=== PATIENT | female | born 1955 | race Caucasian/White ===

== ENCOUNTER → 2019-11-07 10:15 | Outpatient (CLI) | payer OTHER, SELFPAY ==
--- NOTE | ~2019-11-07 | MM_ITS ---
EXAMINATION: MM screening [facility] BI w nena HISTORY: Screening mammogram TECHNIQUE: Craniocaudal and mediolateral oblique 3-D tomosynthesis images were obtained and synthetic 2-D images were generated. CAD analysis was submitted and interpreted. COMPARISON: 08/02/2018, 06/18/2015, 12/17/2013 BREAST PARENCHYMAL COMPOSITION: There are scattered areas of fibroglandular density. FINDINGS: There is no evidence of suspicious mass, calcification, or architectural distortion to sugg est malignancy in either breast. There has been no suspicious interval change. IMPRESSION: 1. No mammographic evidence of malignancy. 2. Recommend routine screening mammography in one year. BI-RADS Category 1: Negative Reviewed, dictated and finalized at location A.
== END ==
PROVIDERS: Visit Provider Internal Medicine
DX: Z12.31 Encounter for screening mammogram for malignant neoplasm of breast (principal)
CPT/HCPCS: 77063; 77067

== ENCOUNTER → 2020-12-22 13:28 | Outpatient (CLI) | payer OTHER, SELFPAY ==
--- NOTE | ~2020-12-22 | MM_ITS ---
EXAMINATION: MM screening [facility] BI w nena HISTORY: Screening mammogram TECHNIQUE: Craniocaudal and mediolateral oblique 3-D tomosynthesis images were obtained and synthetic 2-D images were generated. CAD analysis was submitted and interpreted. COMPARISON: 11/07/2019, 08/02/2018, 06/18/2015 bilateral digital screening mammogram examinations BREAST PARENCHYMAL COMPOSITION: The breasts are heterogeneously dense, which may obscure small masses . FINDINGS: Occasional bilateral benign calcifications. There is no evidence of suspicious mass, calcif ication, or architectural distortion to suggest malignancy in either breast. There has been no suspic ious interval change. IMPRESSION: 1. No mammographic evidence of malignancy. 2. Recommend routine screening mammography in one year. BI-RADS Category 1: Negative Reviewed, dictated and finalized at location A.
== END ==
PROVIDERS: PCP Internal Medicine; Visit Provider Internal Medicine
DX: Z12.31 Encounter for screening mammogram for malignant neoplasm of breast (principal)
CPT/HCPCS: 77063; 77067

== ENCOUNTER → 2021-04-26 11:50 | Outpatient (CLI) | payer OTHER, SELFPAY ==
--- NOTE | ~2021-04-26 | US_ITS ---
EXAMINATION: US thyroid EXAM DATE: 04/26/2021 12:15 INDICATION: Multinodular goiter. TECHNIQUE: Multiple grayscale and Doppler images of the thyroid were obtained (by a technologist who performed the scan) and subsequently reviewed. Individual nodules and recommendations may be reporte d in accordance with TI-RADS system as designated by the 2017 ACR White Paper TI-RADS committee. The re is no prior study for comparison. FINDINGS: The right thyroid lobe measures 6.7 x 2.9 x 3.1 cm, the left measuring 5.4 x 2.4 x 1.8 cm, moderately enlarged. Diffusely moderately heterogeneous thyroid echogenicity with expected amount of vascularit y. Probable right thyroid lobe nodule measuring 3.1 x 2.3 x 2.6 cm, predominantly solid (2 points), hypo echoic (2 points), wider than tall, lobulated margin (2 points), without echogenic foci, category TR4 for this nodule. Small right thyroid lobe deep isoechoic category TR 3 nodule measuring 1.9 x 1.5 x 1.7 cm. IMPRESSION: 1. Multinodular goiter. 2. Largest right thyroid lobe nodule could be considered for ultrasound-guided biopsy. 3. One-year follow-up could be obtained for the smaller right thyroid lobe nodule. Reviewed, dictated and finalized at location B. IMPRESSION: 1. Multinodular goiter. 2. Largest right thyroid lobe nodule could be considered for ultrasound-guided biopsy. 3. One-year follow-up could be obtained for the smaller right thyroid lobe sarah simental
== END ==
PROVIDERS: PCP Internal Medicine
DX: E04.2 Nontoxic multinodular goiter (principal)
CPT/HCPCS: 76536

== ENCOUNTER → 2021-06-09 10:21 | Outpatient (CLI) | payer OTHER, SELFPAY ==
--- NOTE | ~2021-06-09 | DEXA_ITS ---
Bone Density Report Name: Uma Valentin Age: 66 Sex: Female Ethnicity: White Date of : 1955 Indication: postmenopausal; screening for osteoporosis; Referring Provider: Richie Loya Study: Bone densitometry was performed. Exam Date: June 09, 2021 Accession number: [id number] Bone Density: Region BMD T-score Z-score Classification AP Spine (L1-L4) 1.017 -0.3 1.5 Normal Femoral Neck (Left) 0.779 -0.6 0.9 Normal Total Hip (Left) 0.960 0.1 1.4 Normal Femoral Neck (Right) 0.789 -0.5 1.0 Normal Total Hip (Right) 0.869 -0.6 0.6 Normal Total Hip Mean 0.915 -0.3 1.0 Normal World Health Organization criteria for BMD impression classify patients as: Normal (T-score at or above -1.0), Osteopenia (T-score between -1.0 and -2.5), or Osteoporosis (T-score at or below -2.5). 10-year Fracture Risk: FRAX not reported because: All T-scores for Spine Total, Hip Total, Femoral Neck at or above -1.0 Previous Exams: Region Exam Age BMD T-score BMD Change BMD Change Date g/cm2 vs Baseline vs Previous AP Spine(L1-L4) 06/09/2021 66 1.017 -0.3 0.002 0.002 06/18/2015 60 1.014 -0.3 Total Hip(Left) 06/09/2021 66 0.960 0.1 -0.020 -0.020 06/18/2015 60 0.980 0.3 Total Hip(Right) 06/09/2021 66 0.869 -0.6 -0.029 -0.029 06/18/2015 60 0.898 -0.4 *Denotes significance at 95% confidence level, LSC for AP Spine = 0.022 g/cm2, LSC for Total Hip = 0.027 g/cm2 Clinical Information Provided by Patient: Has used the following medications: Vitamin D Patient maximum height was 68.3 Menopause Age: 48 No regular weight bearing exercise Drinks caffeinated beverages Onset of menses at age 14 Number of children 2 Impression: The patient has normal bone mass. No significant bone loss was observed. Discussion: BONE DENSITY IS ABOVE THE MINIMUM DESIRABLE LEVEL AT ALL SKELETAL SITES TESTED. This patient?s bone mineral density is above the minimum desirable level (T-score -1.0 or better) at all sites measured. The patient should follow a healthful lifestyle (good nutrition with adequate calcium and vitamin D, and appropriate weight-bearing exercise). Follow-Up: Consider repeating this study in 5 years or sooner if there is some new clinical indication. Reported by: MAYRA on 06/09/2021 10:40:00 AM. Reviewed, dictated and finalized at location A. M
== END ==
PROVIDERS: PCP Internal Medicine
DX: Z13.820 Encounter for screening for osteoporosis (principal)
CPT/HCPCS: 77080

== ENCOUNTER → 2022-03-16 13:29 | Outpatient (CLI) | payer OTHER, SELFPAY ==
--- NOTE | ~2022-03-16 | MM_ITS ---
EXAMINATION: MM screening [facility] BI w nena HISTORY: Screening TECHNIQUE: Craniocaudal and mediolateral oblique 3-D tomosynthesis images were obtained and synthetic 2-D images were generated. CAD analysis was submitted and interpreted. COMPARISON: Comparison to multiple prior studies sequentially, with oldest reviewed study dated 05/28. BREAST PARENCHYMAL COMPOSITION: The breasts are heterogeneously dense, which may obscure small masses . FINDINGS: There is no evidence of suspicious mass, calcification, or architectural distortion to sugg est malignancy in either breast. There has been no suspicious interval change. IMPRESSION: 1. No mammographic evidence of malignancy. 2. Recommend routine screening mammography in one year. BI-RADS Category 1: Negative Reviewed, dictated and finalized at location A.
== END ==
PROVIDERS: PCP Internal Medicine; Visit Provider Internal Medicine
DX: Z12.31 Encounter for screening mammogram for malignant neoplasm of breast (principal)
CPT/HCPCS: 77063; 77067

== ENCOUNTER → 2023-03-14 10:07 | Outpatient (CLI) | payer OTHER, SELFPAY ==
--- NOTE | ~2023-03-14 | US_ITS ---
Thyroid ultrasound. Clinical History: Thyroid nodules COMPARISON: 04/26/2021 Findings: Real-time sonography of the thyroid gland was performed. The right lobe measures 6.6 x 3.0 x 2.9 cm. The left lobe measures 5.6 x 2.3 x 1.9 cm. The isthmus is 2 mm in AP diameter. Parenchyma is heterogeneous. There is a probable 1.7 x 1.3 x 1.3 cm hypoechoic nodule small hyperecho ic foci at the posterior aspect of the right midpole (TR-5 nodule). There is a suspected 1.3 cm hypoe choic solid nodule at the right upper pole. There is a 0.6 cm cystic nodule at the left midpole posteriorly. Impression: Thyroid nodules, predominantly in the right lobe, as detailed above, which are overall probably simil ar to prior exam. Stability is suggestive of benignity.. Reviewed, dictated and finalized at [facility]. Impression: Thyroid nodules, predominantly in the right lobe, as detailed above, which are overall probably similar to prior exam. Stability is suggestive of benignity..
== END ==
DX: E04.2 Nontoxic multinodular goiter (principal)
CPT/HCPCS: 76536

== ENCOUNTER → 2023-05-16 10:30 | Outpatient (CLI) | payer OTHER, SELFPAY ==
--- NOTE | ~2023-05-16 | MM_ITS ---
EXAMINATION: MM screening [facility] BI w nena HISTORY: Screening TECHNIQUE: Craniocaudal and mediolateral oblique 3-D tomosynthesis images were obtained and synthetic 2-D images were generated. CAD analysis was submitted and interpreted. COMPARISON: Comparison to multiple prior studies sequentially, with oldest reviewed study dated 02/2018. BREAST PARENCHYMAL COMPOSITION: Breast composed of scattered areas of fibroglandular density FINDINGS: There is no evidence of suspicious mass, calcification, or architectural distortion to sugg est malignancy in either breast. There has been no suspicious interval change. IMPRESSION: 1. No mammographic evidence of malignancy. 2. Recommend routine screening mammography in one year. BI-RADS Category 1: Negative Reviewed, dictated and finalized at location A.
== END ==
PROVIDERS: PCP Internal Medicine; Visit Provider Internal Medicine
DX: Z12.31 Encounter for screening mammogram for malignant neoplasm of breast (principal)
CPT/HCPCS: 77063; 77067

== ENCOUNTER 2024-07-17 10:08 | Outpatient (CLI) | payer OTHER, SELFPAY ==
--- NOTE | ~2024-07-17 | MM_ITS ---
EXAMINATION: MM screening [facility] BI w nena HISTORY: Screening mammogram TECHNIQUE: Craniocaudal and mediolateral oblique 3-D tomosynthesis images were obtained and synthetic 2-D images were generated. CAD analysis was submitted and interpreted. COMPARISON: 05/16/2023, 03/16/2022, 12/22/2020 BREAST PARENCHYMAL COMPOSITION:Not Dense. There are scattered areas of fibroglandular density. FINDINGS: No suspicious mass, calcification, or architectural distortion are identified in either nba ast to suggest malignancy. There has been no suspicious interval change. IMPRESSION: No mammographic evidence of malignancy. Recommend routine screening mammography in one year. BI-RADS Category 1: Negative Reviewed, dictated and finalized at location . ING SAW OPERATOR
== END 2024-07-17 10:09 | disposition home or self-care (01) ==
LOC: MICIMG 10:08
PROVIDERS: PCP Internal Medicine; Visit Provider Internal Medicine
DX: Z12.31 Encounter for screening mammogram for malignant neoplasm of breast (principal)
CPT/HCPCS: 77063; 77067

== ENCOUNTER 2025-07-03 07:42 | Outpatient (CLI) | payer OTHER, SELFPAY ==
--- NOTE | ~2025-07-03 | US_ITS ---
EXAMINATION: US thyroid DATE: 07/03/2025 08:41 INDICATION: Thyroid nodule TECHNIQUE: Multiple ultrasound images of the thyroid were obtained. COMPARISON: March 14, 2023 FINDINGS: Multiple bilateral thyroid nodules are again noted. All of these lesions have effectively TI-RADS 4 sonographic features. The right thyroid lobe measures 7.1 x 3.5 x 3.2 cm. The left thyroid lobe measures 6.0 x 1.7 x 2.3 cm. Complex nodule in the midpole region measuring 2.2 x 1.8 x 2.1 cm stable slightly decreased by size measurement. In the midpole region of the left lobe a 9 x 8 x 7 mm anechoic or cystic appearing focus noted. Along the lateral margin of the mid pole region a 1.2 x 1.2 x 1.2 cm complex nodule noted. Isthmus: 0.2 cm. A 1.2 7.1 x 0.6 cm nodule in the upper pole not significantly changed in size. IMPRESSION: 1. Multiple bilateral sonographically indeterminate or suspicious nodules not clearly changed from the 2022 exam. 2. Correlation with follow-up surveillance in 12 months recommended. RECOMMENDATION: Follow-up thyroid ultrasound in 12 months with recommended date adnexa exam on or about July 03, 2026. Reviewed, dictated and finalized at location A. S ASSEMBLER IMPRESSION: 1. Multiple bilateral sonographically indeterminate or suspicious nodules not c learly changed from the 2022 exam. 2. Correlation with follow-up surveillance in 12 months recommended. RECOMMENDATION: Follow-up thyroid ultrasound in 12 months with recommended date adnexa exam on or about July 03, 2026.
== END 2025-07-03 07:43 | disposition home or self-care (01) ==
PROVIDERS: PCP Internal Medicine
DX: E04.2 Nontoxic multinodular goiter (principal); Z09 Encounter for follow-up examination after completed treatment for conditions other than malignant neoplasm
CPT/HCPCS: 76536

== ENCOUNTER 2025-07-21 10:15 | Outpatient (CLI) | payer OTHER, SELFPAY ==
--- NOTE | ~2025-07-21 | MM_ITS ---
EXAMINATION: MM screening [facility] BI w nena HISTORY: Screening TECHNIQUE: Craniocaudal and mediolateral oblique 3-D tomosynthesis images were obtained and synthetic 2-D images were generated. CAD analysis was submitted and interpreted. COMPARISON: Comparison to multiple prior studies sequentially, with oldest reviewed study dated 08/02/2018. BREAST PARENCHYMAL COMPOSITION: Dense: The breasts are heterogeneously dense, which may obscure small masses FINDINGS: There is a mass in the lower inner quadrant of the right breast, anterior third. There are associated punctate calcifications. The left breast is stable without evidence for malignancy. IMPRESSION: 1. New obscured right breast mass lower inner quadrant, anterior third. 2. Additional mammographic views and possible breast ultrasound are recommended. BI-RADS Category 0: Incomplete: Needs additional imaging evaluation. Reviewed, dictated and finalized at location O. R PROGRAMMER IMPRESSION: 1. New obscured right breast mass lower inner quadrant, anterior third. 2. Additional mammographic views and possible breast ultrasound are recommended . BI-RADS Category 0: Incomplete: Needs additional imaging evaluation.
== END 2025-07-21 10:16 | disposition home or self-care (01) ==
PROVIDERS: PCP Internal Medicine; Visit Provider Internal Medicine
DX: Z12.31 Encounter for screening mammogram for malignant neoplasm of breast (principal); N63.14 Unspecified lump in the right breast, lower inner quadrant
CPT/HCPCS: 77063; 77067

== ENCOUNTER 2025-08-25 09:17 | Outpatient (CLI) | payer OTHER, SELFPAY ==
--- NOTE | ~2025-08-25 | MMUS_ITS ---
EXAMINATION: MM diagnostic [facility] RT w nena, US breast RT limited HISTORY: Additional imaging TECHNIQUE: Craniocaudal and mediolateral oblique 3-D tomosynthesis images were obtained and synthetic 2-D images were generated. CAD analysis was submitted and interpreted. Grayscale sonography over the area(s) of interest with color Doppler if there is a finding. COMPARISON: July 21 BREAST PARENCHYMAL COMPOSITION: Dense: The breasts are heterogeneously dense, which may obscure small masses. MAMMOGRAM FINDINGS: A small mass persists in the anterior 4:00 position. It contains 2 punctate calcifications. Review of multiple old tomograms demonstrates that the mass is stable mammographically, although it is obscured by the dense tissue on many images. There are no suspicious calcifications. No unexplained architectural distortion is seen. There are no skin or nipple abnormalities identified. There is no adenopathy seen on the images submitted. ULTRASOUND FINDINGS: Sonography through the retroareolar region demonstrates multiple mild to moderately dilated fluid-filled ducts, a benign finding. There is a solid mass at 4:00 with a maximum dimension of 8 mm. It has margins which are partially ill defined and partially circumscribed. It is hypoechoic and relatively homogeneous in echotexture. There is acoustic shadowing. This accounts for the mammographic mass. Since the mammographic mass is essentially stable, this finding is probably benign. Only benign-appearing lymph nodes are seen in the axilla. IMPRESSION: The mammographic mass is seen to be a solid structure sonographically, but it appears stable over multiple old tomograms. The ultrasound finding is presumed to represent the stable mammographic mass. As precautionary measure, six-month follow-up right mammogram and right breast ultrasound are recommended BI-RADS 3 - Probably benign - short-term follow-up is recommended. Reviewed, dictated and finalized at location C. ANCE EDUCATION DIRECTOR IMPRESSION: The mammographic mass is seen to be a solid structure sonographically, but it a ppears stable over multiple old tomograms. The ultrasound finding is presumed t o represent the stable mammographic mass. As precautionary measure, six-month f ollow-up right mammogram and right breast ultrasound are recommended BI-RADS 3 - Probably benign - short-term follow-up is recommended.
== END 2025-08-25 09:18 | disposition home or self-care (01) ==
LOC: MICIMG 09:17
PROVIDERS: PCP Internal Medicine; Visit Provider Internal Medicine
DX: R92.8 Other abnormal and inconclusive findings on diagnostic imaging of breast (principal); N63.14 Unspecified lump in the right breast, lower inner quadrant
CPT/HCPCS: 76642; 77061; 77065; G0279